=== PATIENT | male | born 1950 | race American Indian/Alaskan Native ===

== ENCOUNTER 2021-02-27 07:56 | Day surgery (SDC) | payer MEDICARE ==
[2021-02-27] MEDS ORDERED: HYDROmorphone 1 MG/1 ML INJ IV PRN ×2 (08:38)
[2021-02-27] MEDS ORDERED: ONDANSETRON 4 MG/2 ML INJ IV PRN (08:38)
[2021-02-27] MEDS ORDERED: LACTATED RINGERS 1,000 ML IV SCH (09:00)
--- NOTE | 2021-02-27 09:10 | Anesthesia Day of Surgery ---
Anesthesia Day of Surgery - Day of Surgery Patient Examined: Yes Patient H&P Reviewed: Yes Patient is NPO: Yes
[2021-02-27] MEDS ORDERED: LIDOCAINE MPF (2%) 20 MG/1 ML VIAL 5 ML ONE (09:12)
[2021-02-27] MEDS ORDERED: propofoL 200 MG/20 ML VIAL IV ONE (09:12)
[2021-02-27] MEDS ORDERED: fentaNYL 100 MCG/2 ML INJ ONE (09:12)
--- NOTE | 2021-02-27 09:13 | Anesthesia Consultation ---
Anesthesia Consult and Med Hx Date of service: 02/27/21 - Airway ROM Head & Neck: Inadequate (Had posterior cervical fusion-minimal ROM) Mental/Hyoid Distance: Adequate Intubation Access Assessment: Good (Has TRACH) - Pre-Operative Health Status ASA Pre-Surgery Classification: ASA3 Proposed Anesthetic Plan: Spinal (GA if needed) - Cardiovascular System Hx Hypertension: Yes (Off meds) - Central Nervous System Hx Neuromuscular Disorder: Yes (Left shoulder pain-OA) - Gastrointestinal Hx Gastroesophageal Reflux Disease: Yes (Dietary) - Hematic Hx Sickle Cell Disease: No - Other Systems Hx Cancer: Yes Hx Obesity: No - Additional Comments Anesthesia Medical History Comments: Had PCF two years ago and ended up with trach because of airway issues. Was not on vent postop
[2021-02-27] MEDS ORDERED: WATER FOR IRRIG STERILE 1,500 ML BOTTLE IR ONE ×3 (09:27→10:39)
[2021-02-27] MEDS ORDERED: WATER FOR IRRIG STERILE 2000 ML IR ONE ×2 (09:28→10:39)
[2021-02-27] MEDS ORDERED: SCOPOLAMINE TRANSDERMAL PATCH 72 HR TD NR (10:00)
[2021-02-27] MEDS ORDERED: GENTAMICIN 160 MG in SODIUM CHLORIDE 0.9% 100 ML IV NR (10:00)
[2021-02-27] MEDS ORDERED: MIDAZOLAM 2 MG/2 ML INJ IV ONE (10:00)
[2021-02-27] MEDS ORDERED: ePHEDrine SULFATE 50 MG/1 ML INJ ONE (10:16)
[2021-02-27] MEDS ORDERED: IOHEXOL 300 MG/ML 50ML IV ONE (10:38)
--- NOTE | 2021-02-27 12:12 | Post Operative Note ---
Date of procedure: 02/27/21 Pre-op diagnosis: hematuria cap Post-op diagnosis: same Findings: necrotic bleeding tissue pelvic kidney Procedure: cysto turp fulg rpgs Anesthesia: GETA Surgeon: BRYSON CARDONA Estimated blood loss: minimal Pathology: list (prostate) Specimen disposition: to lab Condition: stable Disposition: PACU
--- NOTE | 2021-02-27 12:13 | Discharge Summary ---
Short Stay Discharge Plan Activity: other (no straining ) Weight Bearing Status: Weight Bear as Tolerated Diet: low fat, low cholesterol, low salt Special Instructions: other (teach jay care ) Durable Medical Equipment Needed Upon Discharge: other (jay) Follow up with: VICTORIANO CRAWFORD MD [Primary Care Provider] - 7 Days BRYSON CARDONA MD [Staff Physician] - 3 Days Forms: Outpatient Surgery DC Inst.
[2021-02-27] MEDS ORDERED: SODIUM CHLORIDE IRRI 2000 ML 4,000 ML ONE (12:52)
--- NOTE | 2021-02-27 12:56 | Post Anesthesia Evaluation ---
- Post Anesthesia Evaluation Patient Participated: Yes Airway Patent: Yes Stable Respiratory Function: Yes Nausea/Vomiting: No Temp > 96.8F: Yes Pain Manageable: Yes Adequeate Hydration: Yes Anesthesia Complications: No Block Receding Appropriately: Not Applicable Patient on Ventilator: No
--- NOTE | 2021-02-27 13:14 | Ultrasound Report ---
ULTRASOUND TRANSRECTAL HISTORY: Elevated PSA. Guidance for prostate biopsy. TECHNIQUE: Transrectal grayscale ultrasound FINDINGS: Transrectal ultrasound guidance was provided by radiology during prostate biopsy by urology . The prostate gland measures 4.3 x 2.6 x 3.4 cm with volume of 19.9 cc. Please correlate with the pr ocedural report as needed. IMPRESSION: Successful prostate biopsy under transrectal ultrasound guidance. Signer Name: Eron Rocha Jr, MD Signed: 02/27/2021 1:09 PM Workstation Name: [id number]
--- NOTE | 2021-02-27 13:48 | Fluoroscopy Report ---
Retrograde urography INDICATION: Gross hematuria prostate cancer IMPRESSION: Retrograde right-sided ureterogram demonstrates no evidence of hydronephrosis. Fluoroscopy time: 51 seconds. Fluoroscopic images: 7. Signer Name: hSarif Moses MD Signed: 02/27/2021 1:43 PM Workstation Name: [id number]
[2021-02-27] MEDS ORDERED: SODIUM CHLORIDE IRRI 2000 ML 2,000 ML ONE (14:29)
--- NOTE | 2021-02-27 14:45 | Operative Report ---
DATE OF SURGERY: 02/27/2021 PREOPERATIVE DIAGNOSES: Gross hematuria, history of prostate cancer treatment, poor historian. POSTOPERATIVE DIAGNOSES: 1. Necrotic prostate tissue bleeding. 2. Left pelvic kidney. 3. History of prostate cancer. PROCEDURE: Cystoscopy, bilateral retrogrades, resection of bleeding necrotic tissue and fulguration and transrectal ultrasound with biopsy. SURGEON: Jong Spence M.D. ANESTHESIA: General. FINDINGS: This is a gentleman with a history of prostate cancer, very poor historian. He presented with gross hematuria, difficulty voiding, now presents for treatment. DESCRIPTION OF PROCEDURE: The patient was brought to the OR and placed on the operating table following induction of anesthesia. He has a tracheostomy. It was very difficult. A spinal anesthesia was placed, but he had to be suctioned frequently. When we would suction, he would cough. Cystoscopy showed an elevated bladder neck with a very blanched necrotic tissue with yellow debris surrounding the middle lobe. We were able to do a right retrograde with surrounded a small little diverticulum and showed a little J-hooking on the lower ureter, but good drainage on the left side. There was a very shortened ureter and pelvic kidney. No persistent filling defects were noted. The tissue continued to bleed, so we resected a portion of the middle lobe. Hemostasis was excellent. The patient tolerated the procedure well. A 22 catheter was inserted. At this point, a transrectal ultrasound was done. The gland measured approximately 19 grams. Three biopsies on the right, 3 on the left were done. He was brought to recovery room with a Saldivar drip perfectly clear in stable condition. TID: [id number] RECEIPT: [id number] SILVESTRE/AUDREY/JOAQUIN
[2021-02-27 16:03] VITALS: BP 172/83
== END 2021-02-27 15:45 | disposition home or self-care (01) ==
LOC: OR 07:56
PROVIDERS: ATTEND Urology
DX: R31.0 Gross hematuria (principal); N40.0 Benign prostatic hyperplasia without lower urinary tract symptoms; G40.909 Epilepsy, unspecified, not intractable, without status epilepticus; I10 Essential (primary) hypertension; K21.9 Gastro-esophageal reflux disease without esophagitis; M19.90 Unspecified osteoarthritis, unspecified site; Z85.46 Personal history of malignant neoplasm of prostate; Z79.899 Other long term (current) drug therapy; Z98.890 Other specified postprocedural states
CPT/HCPCS: 52005; 55700; 74420; 76872; 88305; A4217; C1758; J1580; J1956; J2250; J2704; J3010; J7120; Q9967